=== PATIENT | male | born 2000 | race African-American/Black ===

== ENCOUNTER 2019-04-25 20:35 | Inpatient (IN) | payer OTHER ==
[~2019-04-25] VITALS: Ht 172.7 cm; Wt 131.0 kg
[2019-04-25] MEDS ORDERED: SODIUM CHLORIDE 0.9% 1,000 ML IV ONE (20:58)
[2019-04-25] MEDS ORDERED: SODIUM CHLORIDE FLUSH 10ML SYR IVF ONE (21:00)
[2019-04-25] MEDS ORDERED: DIAZEPAM 5 MG TABLET PO ONE (21:00)
[2019-04-25] MEDS ORDERED: SODIUM CHLORIDE 0.9% 1,000ML IVBOLUS ONE (21:00)
--- NOTE | 2019-04-25 21:00 | NUR ---
PT TO ED WITH C/O BILATERAL ARM PAIN. PT REPORTS STRENUOUS ARM EXERCISES AT THE GYM YESTERDAY. PT ALSO REPORTS BLOOD IN URINE STARTING TODAY. ERMD IN ROOM TO RACHELLE PT, PT UPDATED ON POC.
[2019-04-25] MEDS ORDERED: DIAZEPAM 5 MG TABLET ONE (21:04)
--- NOTE | 2019-04-25 21:20 | NUR ---
PT UNABLE TO PROVIDED UA AT THIS TIME.
[2019-04-25 21:31] LABS: MEAN CORPUSCULAR HEMOGLOBIN 25.4 pg (27.5-34.5); MEAN CORPUSCULAR HGB CONC 32.7 g/dL (33.2-36.2); MEAN CORPUSCULAR VOLUME 77.6 fL (81-97); MEAN PLATELET VOLUME 9.5 fL (7.4-10.4); PLATELET COUNT 299 x10^3/uL (130-400); RED CELL DISTRIBUTION WIDTH 14.8 % (9.4-14.8)
[2019-04-25 21:39] LABS: ALANINE AMINOTRANSFERASE 162 U/L (12-78); ALBUMIN 4.2 g/dL (3.4-5.0); ANION GAP 8 mmol/L (5-15); CALCIUM 9.5 mg/dL (8.5-10.1); CHLORIDE 107 mmol/L (98-107); CREATININE 1.26 mg/dL (0.7-1.3)
[2019-04-25 21:40] LABS: BASOPHILS # (AUTO) 0.03 x10^3/uL (0-0.3); BASOPHILS % (AUTO) 0 % (0-1); EOSINOPHILS # (AUTO) 0.16 x10^3/uL (0-0.8); EOSINOPHILS % (AUTO) 2 % (1-7); LYMPHOCYTES # (AUTO) 1.31 x10^3/uL (1-6.1); LYMPHOCYTES % (AUTO) 18 % (22-44); MD SCAN; MONOCYTES % (AUTO) 7 % (2-9); NEUTROPHILS # (AUTO) 5.49 x10^3/uL (1.8-8.0); NEUTROPHILS % (AUTO) 73 % (42-75)
[2019-04-25 22:05] LABS: ALKALINE PHOSPHATASE 70 U/L (45-117); BILIRUBIN,TOTAL 0.9 mg/dL (0.2-1.0); TOTAL PROTEIN 8.8 g/dL (6.4-8.2)
[2019-04-25] MEDS ORDERED: MORPHINE SULFATE 4 MG/ML, 1ML ONE ×2 (22:15→23:38)
[2019-04-25] MEDS ORDERED: ONDANSETRON 2MG/ML, 2ML ONE ×2 (22:15→23:37)
[2019-04-25] MEDS: ONDANSETRON 2MG/ML, 2ML IVPush ONE ×2 (22:41→22:42)
[2019-04-25] MEDS: MORPHINE SULFATE 4 MG/ML, 1ML IVPush PRN ×2 (22:42→23:43)
--- NOTE | 2019-04-25 22:47 | NUR ---
PT CONTINUES TO REFUSE MD LUZ NOTIFIED.
[2019-04-25 22:51] LABS: CREATINE KINASE, TOTAL 74155 U/L (39-308)
[2019-04-25] MEDS ORDERED: ONDANSETRON 2MG/ML, 2ML IVPush ONE (23:00)
[2019-04-25] MEDS ORDERED: DOCUSATE 100 MG CAPSULE PO PRN (23:30)
[2019-04-25] MEDS ORDERED: POLYETHYLENE GLYCOL 17 GM PACKET PO PRN (23:30)
[2019-04-25] MEDS ORDERED: PROMETHAZINE 25 MG/ML, 1ML IM PRN (23:30)
[2019-04-25] MEDS ORDERED: ONDANSETRON 2MG/ML, 2ML IVPush PRN (23:30)
[2019-04-25] MEDS ORDERED: ONDANSETRON ODT 4 MG PO PRN (23:30)
[2019-04-25] MEDS ORDERED: BISACODYL 10 MG SUPP PR PRN (23:30)
[2019-04-26 00:01] LABS: FREE T4 (FREE THYROXINE) 1.25 ng/dL (0.76-1.46)
[2019-04-26 00:11] VITALS: BP 149/92
[2019-04-26 00:12] VITALS: BP 149/92
[2019-04-26] MEDS: CYCLOBENZAPRINE 10 MG TABLET PO PRN ×2 (00:43→15:53)
[2019-04-26] MEDS: SODIUM CHLORIDE 0.9% 1,000 ML IV SCH ×5 (00:44→21:51)
[2019-04-26 01:47] LABS: MICROSCOPIC INDICATED
[2019-04-26 01:48] LABS: CULTURE INDICATED? YES
[2019-04-26 06:25] LABS: BASOPHILS # (AUTO) 0.03 x10^3/uL (0-0.3); BASOPHILS % (AUTO) 1 % (0-1); EOSINOPHILS # (AUTO) 0.19 x10^3/uL (0-0.8); EOSINOPHILS % (AUTO) 3 % (1-7); LYMPHOCYTES % (AUTO) 26 % (22-44); MD NO; MEAN CORPUSCULAR HEMOGLOBIN 25.7 pg (27.5-34.5); MEAN CORPUSCULAR HGB CONC 32.8 g/dL (33.2-36.2); MEAN CORPUSCULAR VOLUME 78.3 fL (81-97); MEAN PLATELET VOLUME 9.3 fL (7.4-10.4); MONOCYTES # (AUTO) 0.49 x10^3/uL (0-1.4); MONOCYTES % (AUTO) 8 % (2-9); NEUTROPHILS # (AUTO) 3.79 x10^3/uL (1.8-8.0); NEUTROPHILS % (AUTO) 62 % (42-75); PLATELET COUNT 272 x10^3/uL (130-400); RED BLOOD COUNT 5.18 x10^6/uL (4.38-5.82); RED CELL DISTRIBUTION WIDTH 14.3 % (9.4-14.8)
[2019-04-26 06:38] LABS: ALBUMIN 2.9 g/dL (3.4-5.0); CHLORIDE 108 mmol/L (98-107)
[2019-04-26 07:07] LABS: ALANINE AMINOTRANSFERASE 169 U/L (12-78); ALKALINE PHOSPHATASE 58 U/L (45-117); ANION GAP 7 mmol/L (5-15); BILIRUBIN,TOTAL 0.8 mg/dL (0.2-1.0); CHOL/HDL RATIO 3.9; CHOLESTEROL, TOTAL 135 mg/dL (140-239); HDL CHOL % 26 % (26-37); HDL CHOLESTEROL (DIRECT) 35 mg/dL (40-60); TOTAL PROTEIN 6.8 g/dL (6.4-8.2); TRIGLYCERIDES 111 mg/dL (50-200); VLDL CHOLESTEROL 22 mg/dL (0-25)
[2019-04-26 07:08] LABS: LDL CHOLESTEROL,CALCULATED 78 mg/dL (54-169); LDL/HDL RATIO 2.2 (0.5-3.0)
[2019-04-26 07:41] LABS: CREATINE KINASE, TOTAL 72206 U/L (39-308)
[2019-04-26 07:58] VITALS: BP 130/81
[2019-04-26 13:36] VITALS: BP 137/78
[2019-04-26 20:24] VITALS: BP 139/76
[2019-04-26] MEDS ORDERED: SODIUM CHLORIDE 0.9% 1,000 ML IV SCH (23:29)
[2019-04-27 01:59] VITALS: BP 126/80
[2019-04-27] MEDS: SODIUM CHLORIDE 0.9% 1,000 ML IV SCH ×4 (02:52→19:02)
[2019-04-27 06:19] LABS: BASOPHILS # (AUTO) 0.03 x10^3/uL (0-0.3); BASOPHILS % (AUTO) 1 % (0-1); EOSINOPHILS # (AUTO) 0.28 x10^3/uL (0-0.8); EOSINOPHILS % (AUTO) 6 % (1-7); LYMPHOCYTES # (AUTO) 1.49 x10^3/uL (1-6.1); LYMPHOCYTES % (AUTO) 29 % (22-44); MD NO; MEAN CORPUSCULAR HEMOGLOBIN 25.5 pg (27.5-34.5); MEAN CORPUSCULAR HGB CONC 32.5 g/dL (33.2-36.2); MEAN CORPUSCULAR VOLUME 78.5 fL (81-97); MONOCYTES # (AUTO) 0.52 x10^3/uL (0-1.4); MONOCYTES % (AUTO) 10 % (2-9); NEUTROPHILS % (AUTO) 56 % (42-75); PLATELET COUNT 289 x10^3/uL (130-400); RED BLOOD COUNT 5.22 x10^6/uL (4.38-5.82); RED CELL DISTRIBUTION WIDTH 14.8 % (9.4-14.8)
[2019-04-27 08:23] VITALS: BP 137/95
[2019-04-27 11:17] LABS: ALBUMIN 3.1 g/dL (3.4-5.0); ANION GAP 6 mmol/L (5-15); CALCIUM 8.8 mg/dL (8.5-10.1); CHLORIDE 108 mmol/L (98-107)
[2019-04-27 11:26] LABS: ALANINE AMINOTRANSFERASE 259 U/L (12-78); ALKALINE PHOSPHATASE 56 U/L (45-117); BILIRUBIN,TOTAL 1.1 mg/dL (0.2-1.0); CREATININE 1.19 mg/dL (0.7-1.3); TOTAL PROTEIN 7.4 g/dL (6.4-8.2)
[2019-04-27] MEDS ORDERED: SODIUM CHLORIDE 0.9% 1,000ML IVBOLUS ONE (13:30)
[2019-04-27 14:38] VITALS: BP 122/86
[2019-04-27 18:27] VITALS: BP 139/92
[2019-04-28] MEDS: SODIUM CHLORIDE 0.9% 1,000 ML IV SCH ×5 (00:19→21:00)
[2019-04-28 00:23] VITALS: BP 119/77
[2019-04-28 06:12] LABS: BASOPHILS # (AUTO) 0.03 x10^3/uL (0-0.3); BASOPHILS % (AUTO) 1 % (0-1); EOSINOPHILS % (AUTO) 5 % (1-7); LYMPHOCYTES # (AUTO) 1.24 x10^3/uL (1-6.1); LYMPHOCYTES % (AUTO) 22 % (22-44); MD NO; MEAN CORPUSCULAR HEMOGLOBIN 25.4 pg (27.5-34.5); MEAN CORPUSCULAR HGB CONC 32.4 g/dL (33.2-36.2); MEAN CORPUSCULAR VOLUME 78.5 fL (81-97); MEAN PLATELET VOLUME 8.9 fL (7.4-10.4); MONOCYTES # (AUTO) 0.59 x10^3/uL (0-1.4); MONOCYTES % (AUTO) 11 % (2-9); NEUTROPHILS # (AUTO) 3.48 x10^3/uL (1.8-8.0); NEUTROPHILS % (AUTO) 62 % (42-75); PLATELET COUNT 267 x10^3/uL (130-400); RED BLOOD COUNT 4.96 x10^6/uL (4.38-5.82); RED CELL DISTRIBUTION WIDTH 14.6 % (9.4-14.8)
[2019-04-28 06:26] LABS: ANION GAP 4 mmol/L (5-15); CALCIUM 8.4 mg/dL (8.5-10.1); CHLORIDE 109 mmol/L (98-107)
[2019-04-28 06:54] LABS: ALANINE AMINOTRANSFERASE 332 U/L (12-78); ALKALINE PHOSPHATASE 57 U/L (45-117); BILIRUBIN,TOTAL 0.5 mg/dL (0.2-1.0); TOTAL PROTEIN 6.9 g/dL (6.4-8.2)
[2019-04-28 08:08] LABS: CREATINE KINASE, TOTAL > 102000 U/L (39-308)
[2019-04-28 08:15] VITALS: BP 148/84
[2019-04-28 11:00] LABS: HCT (SEDRATE) 42.7 % (39.2-51.8)
[2019-04-28 11:21] LABS: MICROSCOPIC INDICATED
[2019-04-28 11:33] LABS: AMPHETAMINE SCREEN, URINE Negative (Negative); BARBITURATE SCREEN, URINE Negative (Negative); BENZODIAZEPINE SCREEN, URINE Negative (Negative); CANNABINOID SCREEN, URINE Negative (Negative); COCAINE SCREEN, URINE Negative (Negative); METHADONE SCREEN, URINE Negative (Negative); OPIATE SCREEN, URINE Negative (Negative)
[2019-04-28 11:36] LABS: CULTURE INDICATED? NO
[2019-04-28 11:37] LABS: % IRON SATURATION 15 % (20-55); IRON LEVEL 52 mcg/dL (65-175); TOTAL IRON BINDING CAPACITY 339 mcg/dL (250-450)
[2019-04-28 13:58] VITALS: BP 136/87
[2019-04-28 14:29] LABS: RAPID INFLUENZA A Negative (Negative); RAPID INFLUENZA B Negative (Negative)
[2019-04-28 19:55] VITALS: BP 136/84
[2019-04-29] MEDS: SODIUM CHLORIDE 0.9% 1,000 ML IV SCH ×2 (01:20→06:00)
[2019-04-29 01:46] VITALS: BP 135/87
[2019-04-29 06:33] VITALS: BP 133/82
[2019-04-29] MEDS: LACTATED RINGERS 1,000 ML IV SCH ×4 (09:30→21:00)
[2019-04-29 10:02] LABS: ANION GAP 5 mmol/L (5-15); CALCIUM 8.5 mg/dL (8.5-10.1); CHLORIDE 108 mmol/L (98-107)
[2019-04-29 10:28] LABS: ALANINE AMINOTRANSFERASE 414 U/L (12-78); ALKALINE PHOSPHATASE 58 U/L (45-117); BILIRUBIN,TOTAL 0.6 mg/dL (0.2-1.0); CREATININE 1.16 mg/dL (0.7-1.3); TOTAL PROTEIN 7.2 g/dL (6.4-8.2)
[2019-04-29 11:00] LABS: CREATINE KINASE, TOTAL 93298 U/L (39-308)
[2019-04-29 12:16] VITALS: BP 134/91
[2019-04-29 20:15] VITALS: BP 129/85
[2019-04-30] MEDS: LACTATED RINGERS 1,000 ML IV SCH ×6 (00:30→21:45)
[2019-04-30 01:33] VITALS: BP 124/81
[2019-04-30 06:14] LABS: BASOPHILS # (AUTO) 0.03 x10^3/uL (0-0.3); BASOPHILS % (AUTO) 1 % (0-1); EOSINOPHILS % (AUTO) 6 % (1-7); LYMPHOCYTES # (AUTO) 1.43 x10^3/uL (1-6.1); LYMPHOCYTES % (AUTO) 26 % (22-44); MD NO; MEAN CORPUSCULAR HEMOGLOBIN 25.7 pg (27.5-34.5); MEAN CORPUSCULAR HGB CONC 32.8 g/dL (33.2-36.2); MEAN CORPUSCULAR VOLUME 78.2 fL (81-97); MEAN PLATELET VOLUME 8.9 fL (7.4-10.4); MONOCYTES # (AUTO) 0.45 x10^3/uL (0-1.4); MONOCYTES % (AUTO) 8 % (2-9); NEUTROPHILS # (AUTO) 3.33 x10^3/uL (1.8-8.0); NEUTROPHILS % (AUTO) 60 % (42-75); PLATELET COUNT 281 x10^3/uL (130-400); RED BLOOD COUNT 5.23 x10^6/uL (4.38-5.82); RED CELL DISTRIBUTION WIDTH 14.4 % (9.4-14.8)
[2019-04-30 06:22] LABS: ANION GAP 6 mmol/L (5-15); CALCIUM 8.7 mg/dL (8.5-10.1); CHLORIDE 104 mmol/L (98-107)
[2019-04-30 06:49] LABS: ALANINE AMINOTRANSFERASE 395 U/L (12-78); ALKALINE PHOSPHATASE 55 U/L (45-117); BILIRUBIN,TOTAL 0.6 mg/dL (0.2-1.0); CREATININE 1.15 mg/dL (0.7-1.3); TOTAL PROTEIN 7.1 g/dL (6.4-8.2)
[2019-04-30 07:53] VITALS: BP 117/78
[2019-04-30 08:21] LABS: CREATINE KINASE, TOTAL 59348 U/L (39-308)
[2019-04-30 12:13] VITALS: BP 125/79
[2019-04-30 18:40] LABS: ANA SCREEN NEGATIVE (Negative)
[2019-04-30 19:36] VITALS: BP 129/90
[2019-05-01 00:45] VITALS: BP 144/89
[2019-05-01] MEDS: LACTATED RINGERS 1,000 ML IV SCH ×6 (01:40→21:11)
[2019-05-01 07:00] LABS: ANION GAP 4 mmol/L (5-15); CHLORIDE 103 mmol/L (98-107)
[2019-05-01 07:03] LABS: BASOPHILS # (AUTO) 0.03 x10^3/uL (0-0.3); BASOPHILS % (AUTO) 1 % (0-1); EOSINOPHILS # (AUTO) 0.31 x10^3/uL (0-0.8); EOSINOPHILS % (AUTO) 5 % (1-7); LYMPHOCYTES # (AUTO) 1.32 x10^3/uL (1-6.1); LYMPHOCYTES % (AUTO) 23 % (22-44); MD SCAN; MEAN CORPUSCULAR HEMOGLOBIN 25.4 pg (27.5-34.5); MEAN CORPUSCULAR HGB CONC 32.4 g/dL (33.2-36.2); MEAN CORPUSCULAR VOLUME 78.3 fL (81-97); MONOCYTES # (AUTO) 0.47 x10^3/uL (0-1.4); MONOCYTES % (AUTO) 8 % (2-9); NEUTROPHILS # (AUTO) 3.58 x10^3/uL (1.8-8.0); NEUTROPHILS % (AUTO) 63 % (42-75); PLATELET COUNT 299 x10^3/uL (130-400); RED BLOOD COUNT 5.31 x10^6/uL (4.38-5.82); RED CELL DISTRIBUTION WIDTH 14.3 % (9.4-14.8)
[2019-05-01 07:24] VITALS: BP 126/81
[2019-05-01 07:29] LABS: ALANINE AMINOTRANSFERASE 335 U/L (12-78); ALKALINE PHOSPHATASE 54 U/L (45-117); BILIRUBIN,TOTAL 0.8 mg/dL (0.2-1.0); CREATININE 1.11 mg/dL (0.7-1.3)
[2019-05-01 08:13] LABS: CREATINE KINASE, TOTAL 31700 U/L (39-308)
[2019-05-01 12:07] VITALS: BP 122/80
[2019-05-01 19:57] VITALS: BP 129/84
[2019-05-02] MEDS: LACTATED RINGERS 1,000 ML IV SCH ×3 (02:00→10:24)
[2019-05-02 03:01] VITALS: BP 130/82
[2019-05-02 06:18] LABS: ANION GAP 3 mmol/L (5-15); CALCIUM 9.1 mg/dL (8.5-10.1); CHLORIDE 105 mmol/L (98-107)
[2019-05-02 06:48] LABS: CREATININE 1.09 mg/dL (0.7-1.3)
[2019-05-02 07:52] VITALS: BP 134/91
[2019-05-02 08:54] LABS: CREATINE KINASE, TOTAL 19856 U/L (39-308)
[2019-05-02 13:40] VITALS: BP 131/92
[2019-05-02 19:58] VITALS: BP 122/75
[2019-05-03 02:55] VITALS: BP 124/81
[2019-05-03 06:36] LABS: ALBUMIN 3.1 g/dL (3.4-5.0); ANION GAP 7 mmol/L (5-15); CALCIUM 8.8 mg/dL (8.5-10.1); CHLORIDE 107 mmol/L (98-107)
[2019-05-03 07:04] LABS: ALANINE AMINOTRANSFERASE 240 U/L (12-78); ALKALINE PHOSPHATASE 58 U/L (45-117); BILIRUBIN,TOTAL 0.4 mg/dL (0.2-1.0); CREATINE KINASE, TOTAL 12047 U/L (39-308); CREATININE 1.16 mg/dL (0.7-1.3); TOTAL PROTEIN 7.4 g/dL (6.4-8.2)
[2019-05-03 07:56] VITALS: BP 107/73
== END 2019-05-03 10:55 | disposition home or self-care (01) | DRG 558 ==
LOC: ED 23:11 → EDIP 23:28 → 4EST 04-26 00:11 → DCLOUNGE 05-03 10:43
PROVIDERS: ADMIT Internal Medicine; ATTEND Internal Medicine
DX: M62.82 Rhabdomyolysis (principal); B15.9 Hepatitis A without hepatic coma; Z68.41 Body mass index [BMI] 40.0-44.9, adult; E66.01 Morbid (severe) obesity due to excess calories; R31.0 Gross hematuria
CPT/HCPCS: 36415; 76705; 80048; 80053; 80061; 80307; 81001; 82550; 83036; 83540; 83550; 83735; 84439; 84443; 85025; 85651; 86038; 86140; 86235; 86704; 86706; 86708; 86803; 87086; 87340; 87400; 99285; G0378; J2405; J2270; J7030; J7120